=== PATIENT | male | born 1940 | race Caucasian/White ===

== ENCOUNTER → 2016-10-03 | Outpatient (CLI) | payer OTHER ==
[~2016-10-03] MED LIST: IOPAMIDOL (ISOVUE-300) 100 ML BTL IV ONE
== END ==
LOC: FIMAGING 10:40
PROVIDERS: ATTEND Internal Medicine
DX: R91.1 Solitary pulmonary nodule (principal); Z87.19 Personal history of other diseases of the digestive system
CPT/HCPCS: 71260; 74177; Q9967

== ENCOUNTER 2017-10-26 12:10 | Emergency (ER) | payer OTHER ==
[2017-10-26] MEDS ORDERED: NS 1,000 ML IV ONE (12:30)
--- NOTE | 2017-10-26 12:48 | EDPHY ---
H & P Time Seen by Provider: 10/26/17 12:19 HPI/ROS: Chief complaint. Shivers HPI. 77-year-old male presents with complaint of cold and shivering since last evening. He thinks he has had fever to 100 degrees. Slightly lightheaded and feeling of fatigue. He had brief slurred speech this morning that was read denies by his however she tells me it only lasted a couple of seconds this morning. Otherwise there was no peripheral weakness or altered sensation. No headache. No change in his vision. The couple seconds slurred speech have resolved and not recurred. He has a slight cough. Otherwise denies chest discomfort, shortness of breath, abdominal pain. Denies urinary symptoms. Several weeks ago he had a brief lightheaded episode while in [place] and this is not recurred since. ROS Constitutional. Fever and chills Eyes. no problems with vision ENT. no sore throat, no nasal drainage Cardiovascular. no chest pain Respiratory. Cough but no shortness of breath Abdominal. no abdominal pain, no nausea/vomiting, no diarrhea . no problems urinating MS. no calf pain/swelling, no neck/back pain, no joint pain Skin. no rash Lymph. no swollen glands Neuro. Fatigue and slightly lightheaded Past Medical/Surgical History: Hypertension, dyslipidemia Social History: , nonsmoker, no alcohol Smoking Status: Never smoked Physical Exam: General Appearance: Alert well-developed male mild distress vital signs show temp 37.6 degrees, heart rate 102 Eyes: Pupils equal and round no pallor or injection. ENT, Mouth: Mucous membranes are moist. Respiratory: There are no retractions, lungs are clear to auscultation. Cardiovascular: Regular rate and rhythm. Gastrointestinal: Abdomen is soft and nontender, no masses, bowel sounds normal. Neurological: Awake and alert, sensory and motor exams grossly normal. Skin: Warm and dry, no rashes. Musculoskeletal: Neck is supple nontender. Extremities symmetrical, full range of motion. Psychiatric: Patient is oriented X 3, there is no agitation. Constitutional: Initial Vital Signs Temperature (C) 37.6 C 10/26/17 12:14 Heart Rate 102 H 10/26/17 12:14 Respiratory Rate 20 10/26/17 12:14 Blood Pressure 151/72 H 10/26/17 12:14 O2 Sat (%) 95 10/26/17 12:14 O2 Delivery Mode Room Air Allergies/Adverse Reactions: Penicillins Allergy (Verified 10/26/17 12:13) inipsin Allergy (Uncoded 10/26/17 12:13) Home Medications: Medication Instructions Recorded Advair 500/50 (*) 10/26/17 Azithromycin [Zithromax] 250 mg PO DAILY #6 tab 10/26/17 Losartan Potassium 10/26/17 SIMVASTATIN 10/26/17 Medical Decision Making - Diagnostics Imaging Results: Imaging Impressions Chest X-Ray 10/26/17 12:30 Impression: Medial right basilar consolidation suspicious for pneumonia. Questionable early right lower lobe infiltrate. Procedures: IV normal saline, septic workup ED Course/Re-evaluation: Re-evaluation at 2:10 p.m.. Patient is stable. His speech is normal. He is neurologically intact. The patient, his , and I discussed imaging and lab results. We discussed treatment plan including criteria for return importance of follow-up and further evaluation. They expressed understanding and agreement Differential Diagnosis: I considered CVA however the patient had only 2-3 seconds or 1 sentence of slurred speech and no other subsequent findings. Normal neurologic exam. He has chills and fever and evidence for pneumonia on chest x-ray. No evidence for sepsis. Hemodynamically stable - Data Points Laboratory Results: Laboratory Results 10/26/17 12:52 10/26/17 12:52 10/26/17 10/26/17 10/26/17 13:50 12:52 12:52 WBC RBC Hgb Hct MCV MCH MCHC RDW Plt Count MPV Neut % (Auto) Lymph % (Auto) [place] % (Auto) Eos % (Auto) Baso % (Auto) Nucleat RBC Rel Count Absolute Neuts (auto) Absolute Lymphs (auto) Absolute Monos (auto) Absolute Eos (auto) Absolute Basos (auto) Absolute Nucleated RBC Immature Gran % Immature Gran # PT 15.0 SEC SEC (12.0-15.0) INR 1.16 (0.83-1.16) APTT 35.9 SEC SEC (23.0-38.0) VBG Lactic Acid Sodium 138 mEq/L mEq/L (135-145) Potassium 4.1 mEq/L mEq/L (3.5-5.2) Chloride 103 mEq/L mEq/L (97-110) Carbon Dioxide 26 mEq/l mEq/l (22-31) Anion Gap 9 mEq/L mEq/L (8-16) BUN 22 mg/dL mg/dL (7-23) Creatinine 1.0 mg/dL mg/dL (0.7-1.3) Estimated GFR > 60 Glucose 119 mg/dL H mg/dL (70-100) Calcium 9.4 mg/dL mg/dL (8.5-10.4) Total Bilirubin 2.1 mg/dL H mg/dL (0.1-1.4) Conjugated Bilirubin 0.5 mg/dL mg/dL (0.0-0.5) Unconjugated Bilirubin 1.6 mg/dL H mg/dL (0.0-1.1) Urine Color Pending Urine Appearance Pending Urine pH Pending Ur Specific [place] Pending Urine Protein Pending Urine Ketones Pending Urine Blood Pending Urine Nitrate Pending Urine Bilirubin Pending Urine Urobilinogen Pending Ur Leukocyte Esterase Pending Urine RBC Pending Urine WBC Pending Ur Epithelial Cells Pending Urine Glucose Pending 10/26/17 10/26/17 12:52 12:52 WBC 10.35 10^3/uL H 10^3/uL (3.80-9.50) RBC 5.29 10^6/uL 10^6/uL (4.40-6.38) Hgb 16.0 g/dL g/dL (13.7-17.5) Hct 47.4 % % (40.0-51.0) MCV 89.6 fL fL (81.5-99.8) MCH 30.2 pg pg (27.9-34.1) MCHC 33.8 g/dL g/dL (32.4-36.7) RDW 13.9 % % (11.5-15.2) Plt Count 145 10^3/uL L 10^3/uL (150-400) MPV 10.0 fL fL (8.7-11.7) Neut % (Auto) 81.7 % H % (39.3-74.2) Lymph % (Auto) 7.4 % L % (15.0-45.0) [place] % (Auto) 9.8 % % (4.5-13.0) Eos % (Auto) 0.3 % L % (0.6-7.6) Baso % (Auto) 0.3 % % (0.3-1.7) Nucleat RBC Rel Count 0.0 % % (0.0-0.2) Absolute Neuts (auto) 8.46 10^3/uL H 10^3/uL (1.70-6.50) Absolute Lymphs (auto) 0.77 10^3/uL L 10^3/uL (1.00-3.00) Absolute Monos (auto) 1.01 10^3/uL H 10^3/uL (0.30-0.80) Absolute Eos (auto) 0.03 10^3/uL 10^3/uL (0.03-0.40) Absolute Basos (auto) 0.03 10^3/uL 10^3/uL (0.02-0.10) Absolute Nucleated RBC 0.00 10^3/uL 10^3/uL (0-0.01) Immature Gran % 0.5 % % (0.0-1.1) Immature Gran # 0.05 10^3/uL 10^3/uL (0.00-0.10) PT INR APTT VBG Lactic Acid 1.0 mmol/L mmol/L (0.7-2.1) Sodium Potassium Chloride Carbon Dioxide Anion Gap BUN Creatinine Estimated GFR Glucose Calcium Total Bilirubin Conjugated Bilirubin Unconjugated Bilirubin Urine Color Urine Appearance Urine pH Ur Specific [place] Urine Protein Urine Ketones Urine Blood Urine Nitrate Urine Bilirubin Urine Urobilinogen Ur Leukocyte Esterase Urine RBC Urine WBC Ur Epithelial Cells Urine Glucose Medications Given: Discontinued Medications Sodium Chloride (Ns) 1,000 mls @ 0 mls/hr IV EDNOW ONE; Wide Open PRN Reason: Protocol Stop: 10/26/17 12:31 Last Admin: 10/26/17 12:51 Dose: 1,000 mls Departure - Departure Disposition: Home, Routine, Self-Care Clinical Impression: Pneumonia Qualifiers: Pneumonia type: due to unspecified organism Laterality: right Lung location: lower lobe of lung Qualified Code(s): J18.1 - Lobar pneumonia, unspecified organism Condition: Good Instructions: Community Acquired Pneumonia (ED) Additional Instructions: Drink plenty of fluids and stay hydrated. Tylenol 1000 mg every 4-6 hours, ibuprofen 600 mg every 6 hr for fever. Zithromax is antibiotic. Return for worsening symptoms. Recheck in 2 days without fail Referrals: Mukund Odonnell MD [Primary Care Provider] - 2-3 days without fail Prescriptions: Azithromycin [Zithromax] 250 mg PO DAILY #6 tab
[2017-10-26 13:03] LABS: PLATELET COUNT 145 10^3/uL (150-400)
[2017-10-26 13:12] LABS: INR 1.16 (0.83-1.16)
[2017-10-26 14:16] VITALS: BP 129/70
== END 2017-10-26 14:25 | disposition home or self-care (01) ==
DX: J18.1 Lobar pneumonia, unspecified organism (principal); I10 Essential (primary) hypertension; E86.9 Volume depletion, unspecified

== ENCOUNTER → 2017-12-24 | Outpatient (CLI) | payer OTHER | LOC: BMCIMAGING 09:03 | PROVIDERS: ATTEND Internal Medicine | DX: Z09 Encounter for follow-up examination after completed treatment for conditions other than malignant neoplasm (principal); Z87.01 Personal history of pneumonia (recurrent) ==